=== PATIENT | female | born 1970 | race Two or more races ===

== ENCOUNTER 2017-10-20 12:23 | Emergency (ER) | payer MEDICAID ==
[~2017-10-20] VITALS: Ht 157.5 cm; Wt 63.5 kg
[2017-10-20 12:23] VITALS: BP 142/80
[2017-10-20] MEDS ORDERED: FLUORESCEIN SODIUM OPHTH 1 EA STRIP ONE (12:48)
[2017-10-20] MEDS ORDERED: TETRACAINE HCL/PF 0.5% UD 2 ML BOTTLE ONE (12:48)
[2017-10-20] MEDS ORDERED: TETRACAINE HCL/PF 0.5% UD 2 ML BOTTLE RIGHTEYE ONE (13:00)
[2017-10-20] MEDS ORDERED: FLUORESCEIN SODIUM OPHTH 1 EA STRIP OP ONE (13:00)
[2017-10-20] MEDS ORDERED: ACETAMINOPHEN ES 500 MG TABLET ONE (13:41)
[2017-10-20] MEDS ORDERED: ACETAMINOPHEN ES 500 MG TABLET PO ONE (14:00)
== END 2017-10-20 13:54 | disposition home or self-care (01) ==
LOC: ER 12:24
DX: H57.11 Ocular pain, right eye (principal); H57.8 Other specified disorders of eye and adnexa; E11.9 Type 2 diabetes mellitus without complications
CPT/HCPCS: 99283; A4606; Z7610